=== PATIENT | male | born 1990 | race Caucasian/White ===

== ENCOUNTER 2024-12-23 13:49 | Outpatient (REF) | payer OTHER, SELFPAY ==
[2024-12-23 18:13] LABS: Hematocrit 44.2 % (42.0-52.0); Hemoglobin 15.4 g/dl (14.0-18.0); Mean Corpuscular HGB Conc 34.8 g/dl (31.0-36.0); Mean Corpuscular Hemoglobin 30.8 pg (27.0-33.0); Mean Corpuscular Volume 88.4 fL (80.0-98.0); NRBC Abs Auto 0.000 X10*3/uL (0.0-0.012); NRBC Pct Auto 0.0 /100WBC (0.0-0.2); Platelet Count 301 X10*3/uL (160-400); Red Blood Count 5.00 X10*6/uL (4.60-5.80); White Blood Count 8.1 X10*3/uL (4.8-10.8)
[2024-12-23 18:15] LABS: Hemoglobin A1C 119.2007 umol/L
[2024-12-23 18:53] LABS: Microalbum/Creatinine Ratio Ur 4.3 ug/mg cr (<30)
[2024-12-23 19:01] LABS: Folate 15.9 ng/mL (> or = 4.0); Vitamin B12 806 pg/mL (200-900)
[2024-12-23 19:07] LABS: Alanine Aminotransferase 24 U/L (0-40); Albumin Level 4.6 g/dL (3.5-5.0); Alkaline Phosphatase 67 U/L (39-117); Anion Gap 11 (12-20); Aspartate Amino Transferase 26 U/L (5-37); Blood Urea Nitrogen 23 mg/dL (9-16); Calcium 9.2 mg/dL (8.4-10.2); Carbon Dioxide 31 mmol/L (22-29); Chloride 104 mmol/L (96-108); Cholesterol 224 mg/dL (<200); Estimated Glomerular Filt Rate > 60; HDL Cholesterol 45 mg/dL (>40); Potassium 3.8 mmol/L (3.3-5.1); Sodium 142 mmol/L (135-145); Total Protein 6.8 g/dL (6.5-8.0); Triglycerides 266 mg/dL (<150)
== END 2024-12-23 13:50 | disposition home or self-care (01) ==
LOC: HO.WFDLDS 13:49
PROVIDERS: PCP Nurse Practitioner Family; Visit Provider Nurse Practitioner Family
DX: Z00.00 Encounter for general adult medical examination without abnormal findings (principal); Z23 Encounter for immunization; Z76.89 Persons encountering health services in other specified circumstances; E66.9 Obesity, unspecified; F33.1 Major depressive disorder, recurrent, moderate; F41.1 Generalized anxiety disorder; Z81.1 Family history of alcohol abuse and dependence; Z84.89 Family history of other specified conditions; Z68.31 Body mass index [BMI] 31.0-31.9, adult
CPT/HCPCS: 36415; 80053; 80061; 82043; 82306; 82570; 82607; 82746; 83036; 84443; 85027; 90471; 90656; 90715; 96127

== ENCOUNTER 2024-12-23 13:49 | Outpatient (AMB) | payer OTHER, SELFPAY ==
--- NOTE | 2024-12-23 13:54 | MHC.PC.OV ---
Vital Signs 12/23/24 14:01 Height 5 ft 5 in Weight 190 lb 2 oz BMI 31.6 BP 124/68 Blood Pressure Location Lt brachial Position Sitting Respiration 12 Pulse 65 Pulse Source Pulse Oximeter Temp 97.5 F Temp Source Oral Pulse Oximetry (%) 99 Oxygen Delivery Method Room Air Intake Visit Reasons: CPE Intake Note: New patient to establish care and cpe. Health Systems Analyst Required: No Allergies sensitivy anesthesia Adverse Reaction (Severe, Uncoded 12/23/24 14:44) Unknown Medication List - Last Reviewed 12/23/24 by Itlaia Mattson MA clonazepam 0.25 mg PO DAILY PRN sertraline 200 mg PO DAILY Tobacco use date assessed: 12/23/24 Dental Screening Dental Screen Date: 12/23/24 Did you have a dental visit in the last 12 months?: Yes Did you have a dental problem in the last 6 months where you did not have access to dental care?: No Was dental information given to patient?: Patient has dentist HPI HPI Comments History of Present Illness Details 34 y/o M with obesity, MDD, BRAULIO, vasovagal syncope , seasonal allergies Social: unemployed; electromechanical technician laid off;looking for employment. . Has a dog. Fhx: Dad 2023 d/t complications from Etoh lung cancer; Maternal uncle s/p cardiac stent autoimmune stuff; Mom alive Health Maintenance Flu 12/23/24 Tdap 12/23/24 Specialists Here today to est care No records, [facility] MDD/BRAULIO: lifelong sx; worse since losing job and other stressors. On sertraline and klonopin. Has never been on any other meds; wonders if he has ADHD. Interested in wellbutrin. Denies si/hi. Does not have a counselor at this time but is working on this. Was managed by med prescriber in the past, no longer since losing job. Exam: Awake alert NAD RRR LS CTAB Mood and affect appropriate Plan Tdap and flu today Screening labs today Refill sertraline and klonopin Start wellbutrin xl 150mg QD Refer to [facility] for counseling and med prescribing RTO 6-8 to fu on start of wellbutrin. Crisis info provided at [facility] Total time spent caring for the patient today was 45 minutes. This includes time spent before the visit reviewing the chart, time spent during the visit, and time spent after the visit on documentation, reviewing laboratory results, diagnostic imaging, medications, performing a medically necessary evaluation, counseling on diagnoses, care coordination, ordering appropriate tests, ordering appropriate medications, review of tests performed by other providers, reporting test results with the patient, communication with other healthcare providers. [facility] Medical History (Updated 12/23/24 @ 14:54 by Paris Chin [facility]) Anxiety and depression Chronic back pain Chronic neck pain GERD (gastroesophageal reflux disease) Headache High cholesterol IBS (irritable bowel syndrome) Imbalance Surgical History (Updated 12/23/24 @ 14:06 by Italia Mattson MA) No pertinent past surgical history Family History (Updated 12/23/24 @ 14:06 by Italia Mattson MA) Father Cancer Substance abuse Social History (Updated 12/23/24 @ 14:04 by Italia Mattson MA) Household Members: Spouse Both parents involved: No Caregiver staying overnight: No Housing: House Are you a primary critical care educator to a significant other at home: No Do you presently have visiting nurse or other home services: No 75 years or older and lives alone: No Alcohol intake: current Alcohol intake frequency: a few times a month Patient Tobacco Use Status: Never used Tobacco e-Cigarette/Vaping Use: Never Used Second Hand Smoke Exposure: No Use of substances other than those prescribed or required for medical reasons: Yes Substance Use Type: Marijuana Current occupational status: unemployed Current occupational exposures/hazards: No Cognitive needs: No Hearing needs: No Vision needs: No Questionnaire PHQ-9 Over the last 2 weeks, how often have you been bothered by any of the following problems? 1. Little interest or pleasure in doing things: several days 2. Feeling down, depressed, or hopeless: several days 3. Trouble falling or staying asleep, or sleeping too much: several days 4. Feeling tired or having little energy: several days 5. Poor appetite or overeating: not at all 6. Feeling bad about yourself - or that you are a failure or have let yourself or your family down: several days 7. Trouble concentrating on things, such as reading the newspaper or watching television: several days 8. Moving or speaking so slowly that other people could have noticed. Or the opposite - being so fidgety or restless that you have been moving around a lot more than usual: not at all 9. Thoughts that you would be better off or of hurting yourself in some way: not at all Total score: 6 Depression Screening Interpretation: Positive Depression Screening Follow-up: Existing condition and In treatment Depression Screening Done: Yes 46441 - PHQ-9 Billing: Yes Source: Developed by Drs. Rk Hernandez, Gisell Prather, Cortes Metzger and colleagues, with an educational gm from [employer]. Thrive Questionnaire Date Thrive assessed: 12/23/24 I am a: Patient What is your living situation today?: I have a place to live, but I am worried about losing it in the future Within the past 12 months, did the food you bought not last and you didn't have the money to get more?: I choose not to answer this question Within the past 12 months, did you worry whether your food would run out before you got money to buy more?: I choose not to answer this question Do you have trouble paying for medicines?: I choose not to answer this question Do you have trouble getting transportation to medical appointments?: No Do you have trouble paying your heating and electricity bill?: No Do you have trouble taking care of your child, family member or friend?: No Do you have trouble with day-to-day activities such as bathing, preparing meals, shopping, managing finances, etc.?: Yes Are you currently unemployed and looking for a job?: Yes Are you interested in more education?: No Please select the resources that you would like help with: Job search/training Currently or been in a relationship where the following occur: I choose not to answer THRIVE Score: 1 AUDIT C Alcohol Use Questionnaire (AUDIT-C) 1. How often do you have a drink containing alcohol?: Monthly or less 2. How many drinks containing alcohol do you have on a typical day when you are drinking?: 1 or 2 3. How often do you have six or more drinks on one occasion?: Never Total Score: 1 Score Reviewed/Action Taken: Yes BRAULIO-7 AMB Questionnaire BRAULIO-7 Date BRAULIO - 7 assessed: 12/23/24 Feeling nervous, anxious, or on edge: 3 = Nearly every day Not being able to stop or control worryin = Nearly every day Worrying too much about different things: 3 = Nearly every day Trouble relaxin = Nearly every day Being so restless that it is hard to sit still: 2 = More than half the days Becoming easily annoyed or irritable: 1 = Several days Feeling afraid as if something awful might happen: 2 = More than half the days Total BRAULIO-7 score (0-4 normal; 5-9 mild; 10-14 moderate; 15-21 severe): 17 Source: Developed by Drs. Rk Hernandez, Gisell Prather, Cortes Metzger and colleagues, with an educational gm from [employer]. BRAULIO-7 Assessment Billing BRAULIO-7 Assessment Tool: BRAULIO-7 Assessment 17836 Physical exam (Primary Care) Vital Signs: Last Vital Signs Temp 97.5 F 12/23/24 14:01 Pulse 65 12/23/24 14:01 Resp 12 12/23/24 14:01 BP 124/68 12/23/24 14:01 Pulse Ox 99 12/23/24 14:01 Oxygen Delivery Method Room Air 12/23/24 14:01 BMI result Body Mass Index 31.6 BMI Assessment/Plan discussion: High BMI High, discussed plan: lifestyle Tobacco/Smoking Status: Tobacco use Status Tobacco use date assessed 12/23/24 12/23/24 14:06 Patient Tobacco Use Status Never used Tobacco 12/23/24 14:06 e-Cigarette/Vaping Use Never Used 12/23/24 14:06 PHQ-9: PHQ-9 Score PHQ-9: Total score 6 12/23/24 14:06 Depression Screening Interpretation: Positive Depression Screening Follow-up: Existing condition and In treatment Thrive Assessment: Date of Thrive Assessment Date Thrive assessed 12/23/24 12/23/24 14:06 Currently or been in a relationship where the following occur: I choose not to answer Coding Level of Care Code New Pt Level 4 (45466) Complex EM visit Add On G2211 Diagnoses Encounter to establish care with new provider Z76.89 Obesity (BMI 30-39.9) E66.9 Moderate episode of recurrent major depressive disorder F33.1 Major depression episode severity: moderate BRAULIO (generalized anxiety disorder) F41.1 Laboratory exam ordered as part of routine general medical examination Z00.00 Influenza vaccination administered at current visit Z23 Need for Tdap vaccination Z23 Family history of alcoholism in father Z81.1 Patient's father is Z84.89 Additional Codes BRAULIO-7 Assessment Billing - BRAULIO-7 Assessment Tool: BRAULIO-7 Assessment 14190 ([id number]) PHQ-9 - 90525 - PHQ-9 Billing: Yes ([id number]) Assessment & Plan Assessment & Plan (1) Encounter to establish care with new provider: Code(s): Z76.89 - Persons encountering health services in other specified circumstances (2) Obesity (BMI 30-39.9): Code(s): E66.9 - Obesity, unspecified Category: Medical (3) MDD (major depressive disorder), recurrent episode: Code(s): F33.9 - Major depressive disorder, recurrent, unspecified Category: Medical Qualifiers: Major depression episode severity: moderate Qualified Code(s): F33.1 - Major depressive disorder, recurrent, moderate (4) BRAULIO (generalized anxiety disorder): Code(s): F41.1 - Generalized anxiety disorder Category: Medical (5) Laboratory exam ordered as part of routine general medical examination: Code(s): Z00.00 - Encounter for general adult medical examination without abnormal findings Category: Medical (6) Influenza vaccination administered at current visit: Code(s): Z23 - Encounter for immunization Category: Medical (7) Need for Tdap vaccination: Code(s): Z23 - Encounter for immunization Category: Medical (8) Family history of alcoholism in father: Code(s): Z81.1 - Family history of alcohol abuse and dependence Category: Medical (9) Patient's father is : Onset Date: ~2023 Code(s): Z84.89 - Family history of other specified conditions Category: Medical Plan . Orders: Orders Complete Blood Count no Diff Today Z00.00 - Encounter for general adult medical examination without abnormal findings, Z23 - Encounter for immunization Comprehensive Met. Panel Today Z00.00 - Encounter for general adult medical examination without abnormal findings, Z23 - Encounter for immunization Microalbumin, Random (w Creat) Today Z00.00 - Encounter for general adult medical examination without abnormal findings, Z23 - Encounter for immunization TSH reflex Free T4 Today Z00.00 - Encounter for general adult medical examination without abnormal findings, Z23 - Encounter for immunization Vitamin D 25-OH Total Today Z00.00 - Encounter for general adult medical examination without abnormal findings, Z23 - Encounter for immunization Hemoglobin A1c Today Z00.00 - Encounter for general adult medical examination without abnormal findings, Z23 - Encounter for immunization Lipid Panel Today Z00.00 - Encounter for general adult medical examination without abnormal findings, Z23 - Encounter for immunization Vitamin B12 and Folate Today Z00.00 - Encounter for general adult medical examination without abnormal findings, Z23 - Encounter for immunization TDaP Immunization Today Z23 - Encounter for immunization Referrals Nurse Navigator Referral F33.9 - Major depressive disorder, recurrent, unspecified, F41.1 - Generalized anxiety disorder Medications: New bupropion HCl XL (Wellbutrin XL) 150 mg PO QAM 90 tabs 0RF clonazepam 0.25 mg (1/2 x 0.5 mg) PO DAILY PRN 15 tabs 2RF anxiety sertraline 200 mg (2 x 100 mg) PO DAILY 180 tabs 2RF Boostrix Tdap 0.5 mL IM ONCE 0.5 mL 0RF NS Z23 - Encounter for immunization Patient Instructions: Walk-In Care (Urgent Care): We Make it Easy Walk-in for urgent medical issues such as: ? Seasonal Allergies ? Insect Bites ? Cough ? Diarrhea ? Acute Asthma Attacks ? Back, Knee or Joint Pain ? Ear Infection ? Fever without a Rash ? Headaches ? Nausea ? [place] [facility], Rash or Skin Irritation ? Sore Throat ? Sports Physicals ? Vomiting Most insurances are accepted. Patients do not need to be part of the [facility] to seek care at the walk-in clinic. Locations [address] [place], [place] Open Friday through Friday 8am-5pm *Hours may vary due to staffing availability. To confirm Walk-In Care hours please call. [facility] [address], [place] [address] ? [phone] [facility] [place] provides services to ages 18 and over. Open Friday-Friday: 7 a.m. to 5 p.m. and Friday: 9 a.m. to 3 p.m.* *Hours may vary due to staffing availability. To confirm Walk-In Care hours in [place], please call [phone]. [address] [place] [address] ? [phone] [facility] [place] provides services to ages 12 and over. Open Friday-Friday: 8 a.m. to 5 p.m. Hours may vary due to staffing availability. To confirm Walk-In Care hours in [place], please call [phone]. LABORATORY SERVICES: [facility] Lab ? Primary Location [address] [place] [address] Friday through Friday 6:00 AM ? 5:00 PM Friday 7:00 AM ? 11:00 AM* [phone] The [facility] Lab is centrally located near the front entrance of the [facility] for easy outpatient access. Convenient parking is provided for outpatients. *Hours may vary due to staffing availability. To confirm Laboratory hours for any location, please call [phone]. Offsite Location For your convenience, we offer offsite laboratory draw stations at the following locations: [address] [place] [address] ? [facility]ly [facility] [address], [facility] Friday through Friday 7:30 AM ? 1:00 PM* [phone] *Hours may vary due to staffing availability. To confirm Laboratory hours for any location, please call [phone]. [place] ? [address] Friday through Friday 6:00 AM ? 3:30 PM* Friday 6:30 AM ? 3 PM* [phone] *Hours may vary due to staffing availability. To confirm Laboratory hours for any location, please call [phone] [place] [address] Friday through Friday 7:30 AM ? 4:00 PM* [phone] *Hours may vary due to staffing availability. To confirm Laboratory hours for any location, please call [phone] [place] [address] Friday through 9:00 AM ? 4:00 PM* *Hours may vary due to staffing availability. To confirm Laboratory hours for any location, please call [phone]. Appointments are not necessary. Walk-ins are welcome. Like all the departments throughout the [facility], our Lab undergoes frequent reviews to ensure the quality and accuracy of test results, and our staff takes special pride in its status as a nationally accredited facility. Patient Portal: [facility] ONE PATIENT. ONE RECORD. BETTER CARE. [facility] has a fully integrated, cutting-edge mobile electronic health information system that has revolutionized the way we care for our patients and manage our organization. This system improves communication and coordination enabling us to provide safe, higher-quality care, and an overall positive experience for staff and patients. Our first priority, as always, is to deliver the highest quality care possible. The system is running in the background supporting that priority. This portal is for all [facility] services and practices. If you are experiencing any technical difficulties with enrolling or logging into the Patient Portal please complete the [facility] Patient Portal Technical Support Form. [facility] now offers a new secure on-line interactive tool for patients to review their health information ? ?Patient Portal. This interactive web portal will enable patients and their families to take an active role in their care by providing easy, secure access to their health information via the internet. The Patient Portal provides patients with instant access to their health information, including laboratory results, medications, allergies, demographic information, visit history, and more. In addition to managing their own care, parents and health care proxies with authorized consent will appreciate the ability to access the records of those individuals for whom they provide care. Please note: if you wish to gain access (Proxy) to another patient?s portal, you will be required to come to the Medical Records Department in person at [facility]. Both the patient giving proxy access and the proxy will need to provide photo identification and complete the appropriate authorization. The Patient Portal also allows track their appointments online. The [facility] Patient Portal also saves patients time by allowing them to submit updates to their demographic and contact information prior to their visits. Portal email notifications will also alert patients to any new activity on their portal, such as test results and new appointments. In order to initially enroll in the [facility] Patient Portal, you will need to enter some required information including the following: your [facility] Medical Record number your personal home email address name date of Please note: In order to enroll in the [facility] Patient Portal, we need to have your email address on file in your electronic medical record. ?The email address needs to be specific for one person (yourself) in order for your Portal enrollment to be successful. ?You can update your email address in person with our Registration staff when you are registering for a hospital visit. ?Otherwise, you will need to come to the Health Information Management (Medical Records) Department at [facility]. ?We are open from Friday ? Friday from 7:30 a.m. ? 4:30 p.m. ?You will be required to present a photo id. Once you have successfully enrolled in the Patient Portal, you will receive a one-time user id and password for the Portal, sent to your email address. ?This will allow you to log into the Patient Portal within 99 hrs and reset your own logon id and password, and define personal security questions. ?Once your permanent login and password have been set, you can log into the [facility] Patient Portal at any time via the blue button above or from the Portal Logon button on any page of the [facility] website. [facility] and [facility] encourage all of our patients to enroll in Patient Portal as it presents a valuable opportunity for patients and their families to actively participate in their care and stay healthy Welcome to [facility]. ?We look forward to working with you. [facility] Suicide and Crisis Lifeline: Available 24 hours a day, 7 days a week, 365 days a year Dial 988 with any telephone to speak to someone immediately [address] [address] , [facility] (Mental / Behavioral health therapist: [address] [place] [address] [facility]: [address] [place] [address] Open from 10am - 12pm (walk [facility]) [facility] Crisis Services: [address] [place] [address] Walk in hours from 10am - 12pm Behavioral health Network: [address] [place] [address] [place] [address] [phone] Friday through Friday 8am - 8pm Friday and Friday 9am - 5pm Crisis Hotlines Suicide prevention, domestic violence, and other crisis hotlines for youth, young adults, and their friends and families. National Runaway Safeline: The [facility] Safeline helps youth who have run away, are thinking about running away, or who already ran away but are ready to come home. Parents and guardians can also contact the hotline if they are worried about their child running away or if their child has already left home. The hotline is available 24 hours a day, seven days a week. Youth, parents, and guardians can also use the online chat feature on the [facility]'s website to ask for help and get support, [place] [address]. [facility] National Suicide Prevention Lifeline: The National Suicide Prevention Lifeline is a network of local crisis centers that are available 21/10 to provide support for youth and adults who are in any kind of emotional crisis. In addition to the main hotline number listed above, there are several other numbers to call depending on your needs: Georgian Language: Deaf and Hard of Hearin1-431.679.5424 Veterans: Disaster Distress: Anyone can also use their online chat feature on their website. [facility] Suicide Prevention Lifeline [facility] Helpline: The [facility] Helpline is available to anyone in [place] who is need of emotional support. Anyone can call or text the helpline to receive help from specially trained volunteers. [place] high school and college students can also get online support through the IMH[employer]_ program. For high school students, volunteers ages 15-18 are available Friday- from 6-9PM. For college students, [employer]_ is available Friday-Friday from 5-9PM. The Femi Project - The Femi Project is a 21/10 crisis intervention and suicide prevention hotline for LGBTQ youth. Youth can also text Femi to for support, or use the online chat feature on the Femi Project's website. [employer] is available Friday-Friday between 3-10PM. [employer] is available seven days a week between 3-10PM. SafeLink: SafeLink is for anyone who is being affected by domestic violence or dating violence. Volunteers at [employer] speak Tajik and Georgian, and [employer] also has a service that can provide translation in more than 130 languages. TTY:
[2024-12-23 14:01] VITALS: BP 124/68; PULSE 65; RESP 12; TEMP 36.4; O2SAT 99; BMI 31.6
== END 2024-12-23 14:56 | disposition home or self-care (01) ==
LOC: HO.HMCFM 13:50
PROVIDERS: PCP Nurse Practitioner Family; Visit Provider Nurse Practitioner Family
DX: Z00.00 Encounter for general adult medical examination without abnormal findings (principal); F33.1 Major depressive disorder, recurrent, moderate; F41.1 Generalized anxiety disorder; Z76.89 Persons encountering health services in other specified circumstances; Z68.31 Body mass index [BMI] 31.0-31.9, adult; E66.9 Obesity, unspecified; Z23 Encounter for immunization; Z81.1 Family history of alcohol abuse and dependence; Z84.89 Family history of other specified conditions

== ENCOUNTER 2025-02-04 12:15 | Outpatient (AMB) | payer OTHER, SELFPAY ==
--- NOTE | 2025-02-04 12:25 | A.OFFPC_ITS ---
Vital Signs 02/04/25 12:30 Height 5 ft 5 in Weight 192 lb BMI 31.9 BP 104/78 Blood Pressure Location Rt brachial Position Sitting Respiration 13 Pulse 82 Pulse Source Pulse Oximeter Temp 97.5 F Temp Source Temporal Artery Scan Pulse Oximetry (%) 96 Oxygen Delivery Method Room Air Intake Visit Reasons: 6-8 weeks fu on wellbtrin start 30 min Intake Note: Jadiel presents for follow up medication check in. Allergies sensitivy anesthesia Adverse Reaction (Severe, Uncoded 02/04/25 12:58) Unknown Medication List - Last Reconciled 02/04/25 by Paris Chin, GENERAL TECHNICIAN- bupropion HCl XL (Wellbutrin XL) 150 mg PO QAM clonazepam 0.25 mg (1/2 x 0.5 mg) PO DAILY PRN sertraline 200 mg (2 x 100 mg) PO DAILY Tobacco use date assessed: 02/04/25 Dental Screening Dental Screen Date: 02/04/25 Did you have a dental visit in the last 12 months?: No Did you have a dental problem in the last 6 months where you did not have access to dental care?: No Was dental information given to patient?: Patient declined HPI HPI Comments History of Present Illness Details 34 y/o M with obesity, MDD, BRAULIO, vasovag al syncope , seasonal allergies, HLD Social: unemployed; 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 . Has a dog. Fhx: Dad 2023 d/t complications from Etoh lung cancer; Maternal uncle s/p cardiac stent autoimmune stuff; Mom alive Health Maintenance Flu 12/23/24 Tdap 12/23/24 Specialists Counselor/prescriber History of Present Illness The patient is a 34-year-old male presenting for a follow-up visit after starting bupropion for his mood and to review recent lab results. Mood Disorder: - The patient was recently started on bu propion to help his mood and reports that it is helping with his focus during the day. - He takes the medication in the morning and experienced some gassiness for the first few days, but denies any current stomach pain or abnormal constipation. - The patient reports feeling short-temp ered but believes this is related to his current unemployed situation and the stress of interviewing. Anxiety: - The patient states his anxiety level i s the same as always and he has not had to use his as-needed clonazepam since he started care here. - He has been in interview mode for th e past year, which he finds difficult. - The patient has seen a psychiatrist an d has an appointment scheduled with a counselor next week. Hypercholesterolemia: - Lab work from December 23 revealed a total cholesterol of 224 mg/dL and an LDL of 126 mg/dL, which is considered a borderline cholesterol profile. - The patient's HDL was elevated at 45 m g/dL, which is heart protective. - The patient declined a referral to a n utritionist but is mindful of his diet, noting he needs to eat fewer eggs. Health Maintenance: - The patient is mindful of his weight a nd is focused on maintaining good habits. - He is planning to establish a good exe rcise routine for the winter. Review of Systems - Psychiatric: Reports improved focus. A nxiety is reported as stable. Reports being short-tempered, which he attributes to situational stress. Denies physical anxiety symptoms such as diaphoresis or tachycardia. - Gastrointestinal: Reports transient ga ssiness when starting a new medication, which has since resolved. Denies stomach pain or abnormal constipation. - Ears: Reports excessive earwax and dry ness. Physical Exam General: Well developed, well nourished, in no acute distress. Appears stated age. Head: Normocephalic, atraumatic. Eyes: Pupils are equal, round and reactive to light and accommodation. Conjunctivae are clear. Vision grossly normal. TM intact and clear bilat, EAC clear, scab noted in R EAC from QTIP Lungs: Clear to auscultation bilaterally. No rales, rhonchi or wheeze noted. Good air flow in all [place]. Heart: Regular rate and rhythm. No murmurs, click, rubs or gallops are noted. Pulses: Peripheral pulses are equal and palpable bilaterally. Extremities: No clubbing, cyanosis nor edema is noted. Psych: Mood and affect appropriate Results see below Medical Decision Making The patient is a 34-year-old male here for follow-up on his mood and to review labs. He reports bupropion is beneficial for his focus and is well-tolerated. His anxiety is stable and appears largely situational, related to his job search. We discussed medication for performance anxiety, propranolol, but he declined, preferring to avoid additional medications. He is in the process of establishing care with a psychiatrist and a counselor, and it is anticipated the psychiatrist will assume management of his psychotropic medications. I will provide a bridge refill of bupropion. His recent labs were reassuring overall, with the exception of borderline hypercholesterolemia. Given the borderline nature and his protective HDL, a conservative approach with a focus on lifestyle modification is appropriate at this time. The patient declined a director medicaid referral but is motivated to make dietary changes. We will monitor with a repeat lipid panel in six months. His complaint of earwax was investigated; the exam revealed dryness and a minor abrasion rather than cerumen impaction, and simple home care measures were recommended. The plan is to continue current management, transfer psychiatric care as planned, and follow up in six months for a physical and lab review. Plan 1. Mood Disorder - The patient reports bupropion is helpi ng with focus and is well-tolerated. - A refill for bupropion will be provide d to bridge care until he establishes with a psychiatrist. - The patient will confirm with the [facility] hiatrist's office that they will be taking over medication management. 2. Anxiety - The patient's anxiety is stable and he has not needed to use his PRN clonazepam. - The option of a medication to take for situational anxiety before interviews was discussed, but the patient declined at this time. - He is establishing care with a corporate travel counselor or, with an appointment scheduled for next week. 3. Hypercholesterolemia - Lab results show borderline high mando sterol (Total: 224 mg/dL, LDL: 126 mg/dL) with a protective HDL of 45 mg/dL. - The patient declined a director medicaid maria elena banks but is aware of the need for dietary modifications, such as reducing egg consumption. - Plan to repeat the lipid panel in six months to monitor. 4. Ear Dryness And Irritation - The patient's complaint of earwax was found to be ear dryness and a small abrasion on exam, with no cerumen impaction. - Advised the patient that using soap ma y be contributing to dryness and to avoid it. - Recommended using ppsa-bpf-yttkjak hyd rocortisone on a Q-tip to gently rub inside the ear to help with dryness and discomfort. 5. Health Maintenance - The patient will continue efforts to m aintain good habits and is planning to establish an exercise routine for the winter. - Plan to follow up in six months for a head-to-toe physical exam and to review repeat cholesterol panel. Patient Instructions - Continue taking your bupropion medicat ion as prescribed. A refill has been sent to your pharmacy. - Please confirm with your new psychiatr ist's office that they will be taking over the management of your medications. - For your dry and uncomfortable ears, y ou can use uzvx-fpe-rfqrmfz hydrocortisone cream. Apply it gently inside your ear with a Q-tip. Try to avoid washing your ears with soap, as this might be making them spray drier. - We will recheck your cholesterol in si x months. You will need a blood test done about one week before that appointment. The order for the lab test has already been placed. - Please schedule a follow-up appointmen t with me for six months from now, which will be your annual physical. - When you go for your blood work, you d o not need to check in at the main kiosk. Just go to the lab manager front and let them know you are there for labs. - If you get sick or have any other petersen ges or concerns, please send a message through the patient portal. Consent Patient was informed and verbally consented to the use of an ambient scribe for clinic note documentation during this visit. Total time spent caring for the patient today was 30 minutes. This includes time spent before the visit reviewing the chart, time spent during the visit, and time spent after the visit on documentation, reviewing laboratory results, diagnostic imaging, medications, performing a medically necessary evaluation, counseling on diagnoses, care coordination, ordering appropriate tests, ordering appropriate medications, review of tests performed by other providers, reporting test results with the patient, communication with other healthcare providers. [facility] Medical History (Updated 02/04/25 @ 13:15 by Paris Chin [facility]) Anxiety and depression Chronic back pain Chronic neck pain GERD (gastroesophageal reflux disease) Headache High cholesterol IBS (irritable bowel syndrome) Imbalance Surgical History (Updated 12/23/24 @ 14:06 by Italia Mattson MA) No pertinent past surgical history Family History Father Cancer Substance abuse Social History (Updated 02/04/25 @ 12:30 by Kiarra Ervin CMA) Household Members: Spouse Both parents involved: No Caregiver staying overnight: No Housing: House Are you a primary client care consultant to a significant other at home: No Do you presently have visiting nurse or other home services: No 75 years or older and lives alone: No Alcohol intake: current Alcohol intake frequency: a few times a month Patient Tobacco Use Status: Never used Tobacco e-Cigarette/Vaping Use: Never Used Second Hand Smoke Exposure: No Use of substances other than those prescribed or required for medical reasons: Yes Substance Use Type: Marijuana Current occupational status: unemployed Current occupational exposures/hazards: No Cognitive needs: No Hearing needs: No Vision needs: No Questionnaire PHQ-9 Over the last 2 weeks, how often have you been bothered by any of the following problems? 1. Little interest or pleasure in doing things: several days 2. Feeling down, depressed, or hopeless: more than half the days 3. Trouble falling or staying asleep, or sleeping too much: several days 4. Feeling tired or having little energy: several days 5. Poor appetite or overeating: not at all 6. Feeling bad about yourself - or that you are a failure or have let yourself or your family down: several days 7. Trouble concentrating on things, such as reading the newspaper or watching television: not at all 8. Moving or speaking so slowly that other people could have noticed. Or the opposite - being so fidgety or restless that you have been moving around a lot more than usual: not at all 9. Thoughts that you would be better off or of hurting yourself in some way: not at all Total score: 6 Depression Screening Interpretation: Positive Depression Screening Done: Yes [id number] - PHQ-9 Billing: Yes Source: Developed by Drs. Rk Hernandez, Gisell Prather, Cortes Metzger and colleagues, with an educational gm from [employer]. Thrive Questionnaire Date Thrive assessed: 12/23/24 I am a: Patient What is your living situation today?: I have a place to live, but I am worried about losing it in the future Within the past 12 months, did the food you bought not last and you didn't have the money to get more?: I choose not to answer this question Within the past 12 months, did you worry whether your food would run out before you got money to buy more?: I choose not to answer this question Do you have trouble paying for medicines?: I choose not to answer this question Do you have trouble getting transportation to medical appointments?: No Do you have trouble paying your heating and electricity bill?: No Do you have trouble taking care of your child, family member or friend?: No Do you have trouble with day-to-day activities such as bathing, preparing meals, shopping, managing finances, etc.?: Yes Are you currently unemployed and looking for a job?: Yes Are you interested in more education?: No Please select the resources that you would like help with: Job search/training Currently or been in a relationship where the following occur: I choose not to answer THRIVE Score: 1 BRAULIO-7 AMB Questionnaire BRAULIO-7 Date BRAULIO - 7 assessed: 02/04/25 Feeling nervous, anxious, or on edge: 3 = Nearly every day Not being able to stop or control worryin = Not at all Worrying too much about different things: 1 = Several days Trouble relaxin = More than half the days Being so restless that it is hard to sit still: 0 = Not at all Becoming easily annoyed or irritable: 2 = More than half the days Feeling afraid as if something awful might happen: 2 = More than half the days Total BRAULIO-7 score (0-4 normal; 5-9 mild; 10-14 moderate; 15-21 severe): 10 Source: Developed by Drs. Rk Hernandez, Gisell Prather, Cortes Metzger and colleagues, with an educational gm from [employer]. BRAULIO-7 Assessment Billing BRAULIO-7 Assessment Tool: BRAULIO-7 Assessment 62995 Physical exam (Primary Care) Vital Signs: Last Vital Signs Temp 97.5 F 02/04/25 12:30 Pulse 82 02/04/25 12:30 Resp 13 02/04/25 12:30 BP 104/78 02/04/25 12:30 Pulse Ox 96 02/04/25 12:30 Oxygen Delivery Method Room Air 02/04/25 12:30 BMI result Body Mass Index 31.9 Tobacco/Smoking Status: Tobacco use Status Tobacco use date assessed 02/04/25 02/04/25 12:32 Patient Tobacco Use Status Never used Tobacco 02/04/25 12:30 e-Cigarette/Vaping Use Never Used 02/04/25 12:30 PHQ-9: PHQ-9 Score PHQ-9: Total score 6 02/04/25 12:34 Depression Screening Interpretation: Positive Thrive Assessment: Date of Thrive Assessment Date Thrive assessed 12/23/24 02/04/25 12:28 Currently or been in a relationship where the following occur: I choose not to answer Results Reviewed Results Reviewed: Laboratory 12/23/24 Result Units Range Interpretation Provider Comments White Blood Count 8.1 X10*3/uL (4.8-10.8) Red Blood Count 5.00 X10*6/uL (4.60-5.80) Hemoglobin 15.4 g/dl (14.0-18.0) Hematocrit 44.2 % (42.0-52.0) Mean Corpuscular Volume 88.4 fL (80.0-98.0) Mean Corpuscular Hemoglobin 30.8 pg (27.0-33.0) Mean Corpuscular Hemoglobin Concent 34.8 g/dl (31.0-36.0) Red Cell Distribution Width 12.0 % (11.0-16.0) Platelet Count 301 X10*3/uL (160-400) Mean Platelet Volume 9.3 fL (9.4-12.4) Low Nucleated RBC Absolute Count (auto) 0.000 X10*3/uL (0.0-0.012) Nucleated Red Blood Cells % (auto) 0.0 /100WBC (0.0-0.2) Sodium Level 142 mmol/L (135-145) Potassium Level 3.8 mmol/L (3.3-5.1) Chloride Level 104 mmol/L (96-108) Carbon Dioxide Level 31 mmol/L (22-29) High Anion Gap 11 (12-20) Low Blood Urea Nitrogen 23 mg/dL (9-16) High Creatinine 0.85 mg/dL (0.5-1.4) Estimated Creatinine Clearance Calc Not Reportable Estimat Glomerular Filtration Rate > 60 Random Glucose 82 mg/dL (60-115) Estimated Average Glucose 94 mg/dL Hemoglobin A1c Percent 4.9 % (<6.0) Calcium Level 9.2 mg/dL (8.4-10.2) Total Bilirubin 0.3 mg/dL (0.0-1.0) Aspartate Amino Transf (AST/SGOT) 26 U/L (5-37) Alanine Aminotransferase (ALT/SGPT) 24 U/L (0-40) Alkaline Phosphatase 67 U/L (39-117) Total Protein 6.8 g/dL (6.5-8.0) Albumin 4.6 g/dL (3.5-5.0) Triglycerides Level 266 mg/dL (<150) High Cholesterol Level 224 mg/dL (<200) High LDL Cholesterol, Calculated 126 mg/dL (<100) High HDL Cholesterol 45 mg/dL (>40) Vitamin B12 Level 806 pg/mL (200-900) 25-Hydroxy Vitamin D Total 35.2 ng/mL (>30) Folate 15.9 ng/mL (> or = 4.0) Thyroid Stimulating Hormone (TSH) 0.85 uIU/mL (0.32-4.0) Urine Creatinine 116.22 mg/dL Urine Microalbumin 5.0 mg/L Urine Microalbumin/Creatinine Ratio 4.3 ug/mg cr (<30) Coding Level of Care Code Est Pt Level 4 (27123) Complex EM visit Add On G2211 Diagnoses Moderate episode of recurrent major depressive disorder F33.1 Major depression episode severity: moderate BRAULIO (generalized anxiety disorder) F41.1 HLD (hyperlipidemia) E78.5 Excoriation of right ear canal, initial encounter S00.411A Encounter type: initial encounter Laterality: right Additional Codes BRAULIO-7 Assessment Billing - BRAULIO-7 Assessment Tool: BRAULIO-7 Assessment 73208 ([id number]) PHQ-9 - 93777 - PHQ-9 Billing: Yes ([id number]) Assessment & Plan Assessment & Plan (1) MDD (major depressive disorder), recurrent episode: Code(s): F33.9 - Major depressive disorder, recurrent, unspecified Category: Medical Qualifiers: Major depression episode severity: moderate Qualified Code(s): F33.1 - Major depressive disorder, recurrent, moderate (2) BRAULIO (generalized anxiety disorder): Code(s): F41.1 - Generalized anxiety disorder Category: Medical (3) HLD (hyperlipidemia): Code(s): E78.5 - Hyperlipidemia, unspecified Category: Medical (4) Excoriation of ear canal: Code(s): S00.419A - Abrasion of unspecified ear, initial encounter Category: Medical Qualifiers: Encounter type: initial encounter Laterality: right Qualified Code(s): S00.411A - Abrasion of right ear, initial encounter Plan . Orders: Orders Lipid Panel 6 Months E78.5 - Hyperlipidemia, unspecified Medications: Refilled bupropion HCl XL (Wellbutrin XL) 150 mg PO QAM 90 tabs 0RF
[2025-02-04 12:30] VITALS: BP 104/78; PULSE 82; RESP 13; TEMP 36.4; O2SAT 96; BMI 31.9
== END 2025-02-04 13:14 | disposition home or self-care (01) ==
LOC: HO.HMCFM 12:16
PROVIDERS: PCP Nurse Practitioner Family; Visit Provider Nurse Practitioner Family
DX: F33.1 Major depressive disorder, recurrent, moderate (principal); F41.1 Generalized anxiety disorder; E78.5 Hyperlipidemia, unspecified; S00.411A Abrasion of right ear, initial encounter

== ENCOUNTER → 2025-02-04 12:15 | Outpatient (BNVA) | payer OTHER, SELFPAY | PROVIDERS: PCP Nurse Practitioner Family; Visit Provider Nurse Practitioner Family | DX: S00.411A Abrasion of right ear, initial encounter (principal); F41.9 Anxiety disorder, unspecified; E78.00 Pure hypercholesterolemia, unspecified; X58.XXXA Exposure to other specified factors, initial encounter; Y93.9 Activity, unspecified; Y92.9 Unspecified place or not applicable; Y99.9 Unspecified external cause status; F33.1 Major depressive disorder, recurrent, moderate; F41.1 Generalized anxiety disorder; E78.5 Hyperlipidemia, unspecified | CPT/HCPCS: 96127 ==